=== PATIENT | female | born 2000 | race Caucasian/White ===

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

== ENCOUNTER 2018-01-07 20:28 | Emergency (ER) | payer OTHER ==
[2018-01-07 20:44] VITALS: PULSE 88
[2018-01-07 21:42] LABS: Amorphous Sediment,Urine Rare /hpf; Appearance,Urine Turbid (Clear); Bilirubin,Urine Negative (Negative); Blood,Urine Negative (Negative); Color,Urine Yellow; Glucose,Urine (UA) Negative (Negative); Ketones,Urine Negative (Negative); Leukocyte Esterase,Urine Small (Negative); Mucus,Urine Rare /hpf; Nitrite,Urine Negative (Negative); Protein,Urine Trace (Negative); RBC,Urine 5 /hpf (0-5); Specific Gravity,Urine 1.022 (1.001-1.035); Squamous Epithelial Cell,Urine 26 /hpf (0-4)
[2018-01-07] MEDS ORDERED: GLYCERIN ADULT SUPPOSITORY 1 EACH RECTAL STA (22:18)
[2018-01-07] MEDS ORDERED: POLYETHYLENE GLYCOL 3350 17 GM POWD.PACK PO STA (22:18)
--- NOTE | 2018-01-07 22:21 | ED ---
General Adult HPI - General Chief complaint: Abdominal Pain Stated complaint: Unable to urinate, 15 wks pgt Time Seen by Provider: 01/07/18 21:16 Source: patient, RN notes reviewed, old records reviewed Mode of arrival: ambulatory Limitations: no limitations - History of Present Illness Initial comments: This is a 17 female to the ED co constipation, assoc nausea and vomiting which is rexolved that she took reglan and zofran for. Patient has no fever or travel history, no surgiccal history, no fever. Patient is 15 weeks rpegnancy with US showing positive IUP. No tenderness, no dytsuria - Related Data Home Medications Medication Instructions Recorded Confirmed Albuterol Inhaler [Ventolin Hfa 1 - 2 puff INHALATION RT-Q6H PRN 10/27/17 Inhaler] Albuterol Nebulized [Ventolin 2.5 mg INHALATION RT-QID PRN 12/12/17 12/12/17 Nebulized] Metoclopramide [Reglan] 10 mg PO ACHS PRN 12/12/17 12/12/17 Previous Rx's Medication Instructions Recorded Albuterol Inhaler [Ventolin Hfa 1 - 2 puff INHALATION Q4-6H PRN #1 12/12/17 Inhaler] inhaler Albuterol Nebulized [Ventolin 2.5 mg INHALATION Q4H PRN 10 Days 12/12/17 Nebulized] nebu Azithromycin [Zithromax Z-pack] 0 mg PO DIRECTED #6 tab 12/12/17 Polyethylene Glycol 3350 [Miralax] 17 gm PO DAILY #14 packet 01/07/18 Allergies Allergy/AdvReac Type Severity Reaction Status Date / Time amoxicillin Allergy Rash/Hives Verified 01/07/18 20:44 Penicillins Allergy Rash/Hives Verified 01/07/18 20:44 Red coating on ibuprofen Allergy Unknown Uncoded 01/07/18 20:44 Review of Systems ROS Statement: Those systems with pertinent positive or pertinent negative responses have been documented in the HPI. ROS Other: All systems not noted in ROS Statement are negative. Past Medical History Past Medical History: Asthma History of Any Multi-Drug Resistant Organisms: None Reported Past Surgical History: Adenoidectomy, Ear Surgery, Tonsillectomy Past Psychological History: Anxiety, Depression Smoking Status: Former smoker Past Alcohol Use History: None Reported Past Drug Use History: None Reported General Exam Limitations: no limitations General appearance: alert, in no apparent distress Head exam: Present: atraumatic, normocephalic, normal inspection Eye exam: Present: normal appearance, PERRL, EOMI. Absent: scleral icterus, conjunctival injection, periorbital swelling ENT exam: Present: normal exam, mucous membranes moist Neck exam: Present: normal inspection. Absent: tenderness, meningismus, lymphadenopathy Respiratory exam: Present: normal lung sounds bilaterally. Absent: respiratory distress, wheezes, rales, rhonchi, stridor Cardiovascular Exam: Present: regular rate, normal rhythm, normal heart sounds. Absent: systolic murmur, diastolic murmur, rubs, gallop, clicks GI/Abdominal exam: Present: soft, normal bowel sounds. Absent: distended, tenderness, guarding, rebound, rigid Extremities exam: Present: normal inspection, full ROM, normal capillary refill. Absent: tenderness, pedal edema, joint swelling, calf tenderness Back exam: Present: normal inspection Neurological exam: Present: alert, oriented X3, CN II-XII intact Psychiatric exam: Present: normal affect, normal mood Skin exam: Present: warm, dry, intact, normal color. Absent: rash Course Vital Signs 01/07/18 20:41 Temperature 98.4 F Pulse Rate 88 Respiratory 18 Rate Blood Pressure 100/62 O2 Sat by Pulse 98 Oximetry Medical Decision Making - Medical Decision Making 17 female to the ED w medication indiced constipation, encouraged to increase fluids and follow up with OB - Lab Data Lab Results 01/07/18 Range/Units 21:28 Urine Color Yellow Urine Appearance Turbid H (Clear) Urine pH 7.0 (5.0-8.0) Ur Specific [place] 1.022 (1.001-1.035) Urine Protein Trace H (Negative) Urine Glucose (UA) Negative (Negative) Urine Ketones Negative (Negative) Urine Blood Negative (Negative) Urine Nitrite Negative (Negative) Urine Bilirubin Negative (Negative) Urine Urobilinogen 2.0 (<2.0) mg/dL Ur Leukocyte Esterase Small H (Negative) Urine RBC 5 (0-5) /hpf Ur Squamous Epith Cells 26 H (0-4) /hpf Amorphous Sediment Rare H (None) /hpf Urine Mucus Rare H (None) /hpf Disposition Clinical Impression: Constipation, Constipation during Disposition: HOME SELF-CARE Condition: Good Instructions: Constipation (ED) Prescriptions: Polyethylene Glycol 3350 [Miralax] 17 gm PO DAILY #14 packet Is patient prescribed a controlled substance at d/c from ED?: No Referrals: None,Stated [Primary Care Provider] - 1-2 days
[2018-01-07 22:44] VITALS: BP 136/89; RESP 20; TEMP 98
== END 2018-01-07 22:44 | disposition home or self-care (01) ==
LOC: EC 20:28
DX: O99.612 Diseases of the digestive system complicating pregnancy, second trimester (principal); K59.00 Constipation, unspecified; Z3A.15 15 weeks gestation of pregnancy; Z88.0 Allergy status to penicillin; Z88.6 Allergy status to analgesic agent; Z87.891 Personal history of nicotine dependence
CPT/HCPCS: 81001; 87086; 99284

== ENCOUNTER 2018-02-14 16:22 | Emergency (ER) | payer OTHER ==
[2018-02-14 16:34] VITALS: RESP 18; TEMP 98.2
[2018-02-14 17:55] LABS: Appearance,Urine Clear (Clear); Bacteria,Urine Rare /hpf; Bilirubin,Urine Negative (Negative); Blood,Urine Negative (Negative); Color,Urine Light Yellow; Glucose,Urine (UA) Negative (Negative); Hyaline Casts,Urine 1 /lpf (0-2); Ketones,Urine Negative (Negative); Leukocyte Esterase,Urine Moderate (Negative); Mucus,Urine Rare /hpf; Nitrite,Urine Negative (Negative); Protein,Urine Negative (Negative); RBC,Urine <1 /hpf (0-5); Specific Gravity,Urine 1.005 (1.001-1.035); Sperm,Urine Rare /hpf; Squamous Epithelial Cell,Urine 7 /hpf (0-4); Urobilinogen,Urine <2.0 mg/dL (<2.0); WBC,Urine 3 /hpf (0-5)
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
[2018-02-14 19:21] VITALS: BP 102/56; PULSE 67
== END 2018-02-14 19:21 | disposition home or self-care (01) ==
LOC: EC 16:22
DX: O26.892 Other specified pregnancy related conditions, second trimester (principal); R10.31 Right lower quadrant pain; R10.32 Left lower quadrant pain; Z3A.20 20 weeks gestation of pregnancy; Z87.891 Personal history of nicotine dependence; Z79.899 Other long term (current) drug therapy; Z88.0 Allergy status to penicillin; Z88.6 Allergy status to analgesic agent
CPT/HCPCS: 76815; 81001; 99284

== ENCOUNTER 2018-03-23 00:16 | Emergency (ER) | payer OTHER ==
[2018-03-23 00:39] VITALS: BP 103/53; PULSE 111; RESP 18; TEMP 98.4
--- NOTE | 2018-03-23 01:57 | ED ---
General Adult HPI - General Chief complaint: Upper Respiratory Infection Stated complaint: PETR, poss URI Time Seen by Provider: 03/23/18 01:16 Source: patient, RN notes reviewed Mode of arrival: ambulatory Limitations: no limitations - History of Present Illness Initial comments: Patient's a 17-year-old female who is approximately 25 weeks , presenting to the emergency room today with a chief complaint of some chest tightness. She states that she does have a history of asthma and this feels similar to a "asthmatic bronchitis" that she had a a few months back. Patient states she tried an inhaler earlier today with little relief of the symptoms. She states still experienced some tightness across the anterior chest wall. Patient denies any other complaints or symptoms at this time. Patient denies any recent fever, chills, shortness of breath, back pain, abdominal pain, nausea or vomiting, numbness or tingling, dysuria or hematuria, constipation or diarrhea, headaches or visual changes, or any other complaints. - Related Data Home Medications Medication Instructions Recorded Confirmed Cholecalciferol (Vitamin D3) 2,000 unit PO HS 02/14/18 02/14/18 [Vitamin D3] Doxylamine Succinate [Unisom] 25 mg PO HS 02/14/18 02/14/18 Pedi Multivit No.25/Folic Acid 600 mcg PO HS 02/14/18 02/14/18 [Flintstones Multivit Chew Tab] Vitamin B-6 25mg 1 tab PO HS 02/14/18 02/14/18 Previous Rx's Medication Instructions Recorded Albuterol Nebulized [Ventolin 2.5 mg INHALATION Q4H PRN 10 Days 03/23/18 Nebulized] nebu Azithromycin [Zithromax Z-pack] 0 mg PO DIRECTED #6 tab 03/23/18 Allergies Allergy/AdvReac Type Severity Reaction Status Date / Time amoxicillin Allergy Unknown Verified 03/23/18 00:39 Childhood Penicillins Allergy Unknown Verified 03/23/18 00:39 Childhood Red coating on ibuprofen Allergy Unknown Uncoded 03/23/18 00:39 Review of Systems ROS Statement: Those systems with pertinent positive or pertinent negative responses have been documented in the HPI. ROS Other: All systems not noted in ROS Statement are negative. Past Medical History Past Medical History: Asthma History of Any Multi-Drug Resistant Organisms: None Reported Past Surgical History: Adenoidectomy, Ear Surgery, Tonsillectomy Past Psychological History: Anxiety, Depression Smoking Status: Former smoker Past Alcohol Use History: None Reported Past Drug Use History: None Reported General Exam - General Exam Comments Initial Comments: General: The patient is awake and alert, in no distress, and does not appear acutely ill. Eye: Pupils are equal, round and reactive to light, extra-ocular movements are intact. No nystagmus. There is normal conjunctiva bilaterally. No signs of icterus. Ears, nose, mouth and throat: There are moist mucous membranes and no oral lesions. Neck: The neck is supple, there is no tenderness or JVD. Cardiovascular: There is a regular rate and rhythm. No murmur, rub or gallop is appreciated. Respiratory: Lungs are clear to auscultation, respirations are non-labored, breath sounds are equal. No wheezes, stridor, rales, or rhonchi. Gastrointestinal: Soft, non-distended, non-tender abdomen without masses or organomegaly noted. There is no rebound or guarding present. No CVA tenderness. Bowel sounds are unremarkable. Musculoskeletal: Normal ROM, no tenderness. Strength 5/5. Sensation intact. Pulses equal bilaterally 2+. Neurological: A&O x 3. CN II-XII intact, There are no obvious motor or sensory deficits. Coordination appears grossly intact. Speech is normal. Skin: Skin is warm and dry and no rashes or lesions are noted. Psychiatric: Cooperative, appropriate mood & affect, normal judgment. Limitations: no limitations Course Vital Signs 03/23/18 00:37 Temperature 98.4 F Pulse Rate 111 H Respiratory 18 Rate Blood Pressure 103/53 O2 Sat by Pulse 100 Oximetry Medical Decision Making - Medical Decision Making Patient reexamined at this time shows no signs of distress. She is resting currently. Patient is approximately 25 weeks . She does admit to some chest tightness. She states to her feels like bronchitis that she's had in the past. A long discussion was had with the patient about concern for blood clots in . She denies any leg pain or swelling. Did discuss with patient about obtaining blood work in bilateral lower leg ultrasound to help rule out any evidence for blood clots. Risk and benefits of CAT scans were also discussed. The patient has declined these tests. She states that she feels that it's just bronchitis and would like to try a treatment for that. It was discussed with the patient that if it is a blood clot could be life- threatening. She states understanding and states that she will plan to follow up with her doctor tomorrow. We will treat for bronchitis with Z-Rommel and her albuterol as needed. Disposition Clinical Impression: Chest tightness Disposition: HOME SELF-CARE Condition: Stable Instructions: Upper Respiratory Infection (ED) Additional Instructions: Please follow-up the family doctor tomorrow. Please return to emergency room if any symptoms increase or worsen. Prescriptions: Albuterol Nebulized [Ventolin Nebulized] 2.5 mg INHALATION Q4H PRN 10 Days nebu PRN Reason: Cough Azithromycin [Zithromax Z-pack] 0 mg PO DIRECTED #6 tab Is patient prescribed a controlled substance at d/c from ED?: No Referrals: None,Stated [Primary Care Provider] - 1-2 days Chan Pickens DO [STAFF PHYSICIAN] - 1-2 days Rebekah Cisneros MD [REFERRING] - 1-2 days Time of Disposition: 02:14
== END 2018-03-23 02:23 | disposition home or self-care (01) ==
LOC: EC 00:16
DX: O99.89 Other specified diseases and conditions complicating pregnancy, childbirth and the puerperium (principal); R07.89 Other chest pain; O99.512 Diseases of the respiratory system complicating pregnancy, second trimester; J45.909 Unspecified asthma, uncomplicated; Z87.891 Personal history of nicotine dependence; Z79.899 Other long term (current) drug therapy; Z88.0 Allergy status to penicillin; Z91.048 Other nonmedicinal substance allergy status; Z3A.25 25 weeks gestation of pregnancy
CPT/HCPCS: 99283